=== PATIENT | male | born 1960 | race Caucasian/White ===

== ENCOUNTER 2017-04-26 22:27 | Emergency (ER) | payer BC ==
[~2017-04-26] VITALS: Ht 175.3 cm; Wt 131.5 kg
[~2017-04-26 22:27] MED LIST: ALEVE220 MG PO; ANAPROX DS550 MG PO; CIPRODEX OTIC7.5 ML OTIC; EVEKEO10 MG PO; JANUMET 50-1,01 EACH PO; LEVAQUIN 500 M500 M2 PO; PAROXETINE HCL40 MG PO; PROTONIX40 M1 PO; TRAMADOL 50 MG50 MG PO
[2017-04-26 22:54] LABS: ABSOLUTE BASOPHILS 0.1 thou/uL (0.0-0.2); ABSOLUTE EOSINOPHILS 0.1 thou/uL (0.0-0.7); ABSOLUTE LYMPHOCYTES 1.8 thou/uL (0.8-5.3); ABSOLUTE MONOCYTES 0.6 thou/uL (0.0-1.2); ABSOLUTE NEUTROPHILS 8.6 thou/uL (1.6-8.1); EOSINOPHILS 0.7 %; HEMOGLOBIN 14.7 gm/dL (14.0-18.0); MCH 28.5 pg (26.0-34.0); MCHC 32.7 g/dL (28.0-37.0); MCV 87.1 fL (80.0-100.0); MONOCYTES 5.2 %; MPV 8.4 fl. (7.2-11.1); NUCLEATED RBCS 0 /100WBC; PLATELET COUNT* 252 thou/uL (150-400); POLYS 77.1 %; RBC 5.17 mil/uL (4.50-6.00); RDW-CV 14.7 % (10.5-14.5); WBC 11.1 thou/uL (4.0-11.0)
[2017-04-26 23:05] LABS: ANION GAP 12 mmol/L (7-16); BUN 15 mg/dL (7-18); CALCIUM 8.2 mg/dL (8.5-10.1); CHLORIDE 105 mmol/L (98-107); CO2 23 mmol/L (21-32); GLUCOSE 164 mg/dL (70-99); POTASSIUM 3.7 mmol/L (3.5-5.1); SODIUM 140 mmol/L (136-145)
[2017-04-26 23:11] LABS: ALBUMIN 3.1 g/dL (3.4-5.0); ALKALINE PHOSPHATASE 47 U/L (46-116); LIPASE 176 U/L (73-393); SGOT 15 U/L (15-37); SGPT 22 U/L (30-65); TOTAL BILIRUBIN 0.4 mg/dL (<0.1-1.0); TOTAL PROTEIN 6.8 g/dL (6.4-8.2); TROPONIN-I LEVEL <0.06 ng/mL (<0.06)
[2017-04-27 00:39] LABS: URINE BILIRUBIN NEGATIVE (Negative); URINE BLOOD NEGATIVE (Negative); URINE CLARITY CLEAR; URINE COLOR YELLOW; URINE GLUCOSE-RANDOM NEGATIVE (Negative); URINE KETONES NEGATIVE (Negative); URINE LEUKOCYTES-REFLEX NEGATIVE (Negative); URINE NITRITE-REFLEX NEGATIVE (Negative); URINE PROTEIN NEGATIVE (Negative); URINE UROBILINOGEN 0.2 E.U./dl (0.2-1.0)
[2017-04-27 01:22] VITALS: BP 135/96
--- NOTE | 2017-04-27 11:48 | EKG ---
[place] [address] ELECTROCARDIOGRAM REPORT Name: PHILOMENA SWANN JR Room: [facility]#: [id number] Admission: 04/26/17 Attend Phys: Discharge: 04/27/17 Date of : 58 Report #: [id number] THIS REPORT FOR: //name// [facility] ED Test Date: 2017-04-26 Test Time: 22:41:34 Pat Name: PHILOMENA SWANN Department: Room: Gender: M [employer] Manager: MAHESH : 1960 Requested By: Jayce Yates Order Number: [id number] MD: Hi Ho Measurements Intervals [place] Rate: 78 P: 64 DE: 148 QRS: 45 QRSD: 89 T: 32 QT: 345 QTc: 393 Interpretive Statements Sinus rhythm No previous ECG available for comparison Electronically Signed On 04-27-2017 11:48:50 [employer]ES [employer]RESPONDENT by Hi Ho [email or web address] <ELECTRONICALLY SIGNED> By: Hi Ho MD, [facility] 04/27/17 1148 2241 [id number] Hi Ho MD, FACC /EPI
== END 2017-04-27 01:22 | disposition home or self-care (01) ==
LOC: M.ERS 22:27
PROVIDERS: Family Medicine
DX: R10.10 Upper abdominal pain, unspecified (principal); F10.99 Alcohol use, unspecified with unspecified alcohol-induced disorder; Z88.5 Allergy status to narcotic agent

== ENCOUNTER → 2019-01-19 | Outpatient (CLI) | payer MEDICARE, BC ==
[2019-01-19 11:21] LABS: CREATININE 0.9 mg/dL (0.6-1.3)
== END ==
LOC: M.CT 10:57
PROVIDERS: Internal Medicine
DX: R31.9 Hematuria, unspecified (principal); R35.0 Frequency of micturition

== ENCOUNTER → 2020-03-01 | Outpatient (CLI) | payer MEDICARE ==
[2020-03-01 12:59] LABS: CALCIUM 8.5 mg/dL (8.5-10.1); POTASSIUM 4.2 mmol/L (3.5-5.1)
== END ==
LOC: M.LAB 12:11 → M.MRI 13:30
PROVIDERS: ATTEND Registered Nurse Diabetes Educator
DX: Z09 Encounter for follow-up examination after completed treatment for conditions other than malignant neoplasm (principal); J34.1 Cyst and mucocele of nose and nasal sinus; D49.7 Neoplasm of unspecified behavior of endocrine glands and other parts of nervous system

== ENCOUNTER 2020-09-28 08:15 | Emergency (ER) | payer MEDICARE ==
[~2020-09-28] VITALS: Ht 175.3 cm; Wt 113.0 kg
[2020-09-28 08:46] LABS: ABSOLUTE BASOPHILS 0.1 thou/uL (0.0-0.2); ABSOLUTE EOSINOPHILS 0.1 thou/uL (0.0-0.7); ABSOLUTE LYMPHOCYTES 1.5 thou/uL (0.8-5.3); ABSOLUTE MONOCYTES 0.4 thou/uL (0.0-1.2); ABSOLUTE NEUTROPHILS 4.5 thou/uL (1.6-8.1); BASOPHILS 1.2 %; EOSINOPHILS 2.1 %; HEMOGLOBIN 8.8 gm/dL (14.0-18.0); LYMPHOCYTES 22.3 %; MCH 28.3 pg (26.0-34.0); MCV 83.3 fL (80.0-100.0); MONOCYTES 6.5 %; MPV 7.3 fl. (7.2-11.1); NUCLEATED RBCS 0 /100WBC; PLATELET COUNT* 319 thou/uL (150-400); POLYS 67.9 %; RBC 3.12 mil/uL (4.50-6.00); RDW-CV 14.5 % (10.5-14.5); WBC 6.6 thou/uL (4.0-11.0)
[2020-09-28 08:57] LABS: CALCIUM 8.5 mg/dL (8.5-10.1); CREATININE 1.3 mg/dL (0.6-1.3); POTASSIUM 3.8 mmol/L (3.5-5.1)
[2020-09-28 09:11] LABS: ALBUMIN 3.3 g/dL (3.4-5.0); MAGNESIUM 1.7 mg/dL (1.8-2.4); TOTAL BILIRUBIN 0.3 mg/dL (<0.1-1.0); TOTAL PROTEIN 6.6 g/dL (6.4-8.2)
[2020-09-28 09:36] VITALS: BP 117/75
--- NOTE | 2020-09-28 13:58 | EKG ---
[place] [address] ELECTROCARDIOGRAM REPORT Name: PHILOMENA SWANN JR [facility] [id number] Admission: 09/28/20 Attend Phys: Discharge: 09/28/20 Date of : 58 Date of Service: 09/28/20 0825 Report #: [id number] THIS REPORT FOR: //name// [facility] ED Test Date: 2020-09-28 Test Time: 08:25:01 Pat Name: PHILOMENA SWANN Department: Room: Gender: Manager Architectural: CD : 1960 Requested By: Jayce Yates Order Number: [id number] MD: Jasen Carrasco Measurements Intervals [place] Rate: 99 P: 78 WI: 139 QRS: 30 QRSD: 75 T: QT: 427 QTc: 549 Interpretive Statements Sinus rhythm with rare PVCs Borderline repolarization abnormality Prolonged QT interval Baseline wander in lead(s) V2,V3,V4 Compared to ECG 04/26/2017 22:41:34 Rare PVC is noted Prolonged QT interval now present Electronically Signed On 09-28-2020 13:58:04 CDT by Jasen Carrasco [email or web address] <ELECTRONICALLY SIGNED> By: Jasen Carrasco MD, [facility] 09/28/20 1358 4 Jasen Carrasco MD, [facility] /EPI
== END 2020-09-28 09:36 | disposition home or self-care (01) ==
LOC: M.ERS 08:15
PROVIDERS: Family Medicine
DX: F41.0 Panic disorder [episodic paroxysmal anxiety] (principal); Z88.5 Allergy status to narcotic agent